=== PATIENT | male | born 1995 | race Caucasian/White ===

== ENCOUNTER → 2017-07-06 | Outpatient (CLI) | payer OTHER ==
--- OUTSIDE RECORDS SUMMARY | 2017-07-06 15:19 | External Medical Summary Rpt | CCD ---
Author Author , JP TRAMMELL Address Unknown Phone [email or web address] Care Team Providers Care Medical Typist Name Role Phone TYRELL PATRICIA, Unavailable Unavailable TYRELL PATRICIA [facility] Un[facility], Un[id number] Unavailable Unavailable [id number] DR VISHNU SOLIS JR Unavailable Unavailable GRP, DR VISHNU SOLIS JR [facility] Unavailable Un[facility] Unavailable [facility]available [facility] Unavailable Unavailable [facility], [facility] TAHIRA BARTH, Unavailable Unavailable TAHIRA BARTH DAVID M, Unavailable Unavailable JAGJIT MCCRAY [facility] Unavailable Unavailable [facility] KIA MCDUFFIE, Unavailable Unavailable KIA MCDUFFIE KRISTY K, Unavailable Unavailable MICHAEL CERDA GIAN, ANN N, Unavailable Unavailable GIAN, VAMSHI N [id number], Unavailable Unavailable [id number] Unavailable Unavailable [id number] # [id number], [facility] [id number] # 0391 JR VALERIANO SOLIS, Unavailable Unavailable JR VALERIANO SOLIS [facility] Unavailable Unavailable #493, [facility] Purpose Continuity of Care Document - 08-05-2007 through 2016 Problems Code Diagnosis DOS Provider Status 3671 MYOPIA 11-24-2013 JR VALERIANO SOLIS 3732 CHALAZION 09-09-2013 [facility] 4619 ACUTE 09-09-2013 [facility] SINUSITIS, [facility]EDIATRICS UNSPECIFIED PSC 7821 RASH AND 07-18-2013 [facility] OTHER [facility]EDI[facility]ICS NONSPECIFIC PSC SKIN ERUPTION 7862 COUGH 06-30-2013 [facility] 0090 INFECTIOUS 06-13-2013 [facility] COLITIS [facility] ENTERITIS PSC AND GASTROENTER ITIS 4658 ACUTE URIS 06-13-2013 [facility] OF OTHER PEDIATRICS MULTIPLE PSC SITES 462 ACUTE 08-20-2012 [facility] PHARYNGITIS [facility] 79458 UNSPECIFIED 07-24-2012 [facility] [place] [facility] ANKLE S PLC SPRAIN AND STRAIN 18743 PAIN IN 05-31-2012 [facility] FOOT V571 OTHER 05-31-2012 [facility] 95883 EFFUSION OF 04-29-2012 [facility] [place] ANKLE AND [facility]IOLOG[facility] FOOT JOINT 9597 INJURY 04-29-2012 [facility] OTHER&UNSPE COMM[facility]ITY CIFIED [facility] LEG ANKLE&FOOT 77690 PAIN IN 03-06-2012 [facility] JOINT, PEDIATRICS FOREARM PSC 9593 INJURY 03-06-2012 [facility] [place] OTHER&UNSPE RADIOLOGY CIFIED [facility] 4618 OTHER ACUTE 09-04-2011 [facility]US[facility] 0340 STREPTOCOCC 07-29-2011 [facility] AL SORE [facility] THROAT PSC 90835 PAIN IN 03-14-2011 [facility] [place] [facility], HAND [facility] S [facility] 01079 PAIN IN 01-04-2011 [facility], PEDIATRICS LOWER LEG PSC 4659 ACUTE URIS 12-20-2010 [facility] OF PEDIATRICS UNSPECIFIED PSC SITE 86309 REGULAR 11-01-2010 DR VISHNU SOLIS GRP 5583 GASTROENTER 05-25-2010 [facility] ITIS AND [facility] COLITIS [facility] ALLERGIC 5589 OTH&UNSPEC 05-16-2010 [facility] NONINFECTIO [facility]EDIATRICS US PSC GASTROENTER ITIS&COLITI S 41635 CONTUSION 04-13-2010 [facility] 29144 CLOSED 04-11-2010 [facility] FRACTURE OF [facility] METACARPAL BONE 77137 DIARRHEA 12-03-2009 [facility] 4779 ALLERGIC 11-22-2009 [facility] RHINITIS [facility] CAUSE PSC UNSPECIFIED 72692 ABDOMINAL 11-22-2009 [facility] PAIN, PEDIATRICS UNSPECIFIED PSC SITE 4739 UNSPECIFIED 05-18-2009 [facility] SINUS[facility]IS [facility] P[facility] V0481 NEED 05-18-2009 [facility] PROPHYLACTI [facility]IATRICS C PSC VACCINATION &INOCULATIO N FLU 20221 MIGRAINE 03-05-2009 [facility] UNSP W/O PEDIATRICS INTRACT W/O PSC STATUS MIGRAINOSUS 34143 UNSPECIFIED 02-01-2009 [facility] VIRAL [facility] WARTS P[facility] 1401 MALIGNANT 01-18-2009 [facility] NEOPLASM OF [facility] VERMILION BORDER 7296 RESIDUAL 01-18-2009 [place] FOREIGN ANESTHESIA BODY IN GROUP PSC SOFT TISSUE 9060 LATE EFFECT 01-18-2009 [facility] OF OPEN [facility] WOUND OF [facility] HEAD NECK AND TRUNK 7094 FOREIGN 01-15-2009 [facility] BODY [facility]EDI[facility]ICS GRANULOMA PSC SKIN&SUBCUT ANEOUS TISSUE 8748 OPEN WOUND 01-13-2009 [place] OTH&UNSPEC [facility] PARTS [facility] HOSPITAL W/O MENTION COMP 69899 VOMITING 12-29-2008 [facility] ALONE [facility] 6918 OTHER 10-19-2008 [facility] ATOPIC [facility] DERMATITIS PSC AND RELATED CONDITIONS 08064 SPRAIN AND 09-01-2008 [facility] STRAIN OF [facility] UNSPECIFIED HOSPITAL SITE OF FOOT 463 ACUTE 05-09-2008 [facility] TONSILLITIS PEDIATRICS PSC 9233 CONTUSION 04-09-2008 [facility] OF [facility] 927 CRUSHING 04-09-2008 [facility] INJURY OF [facility] UPPER LIMB [facility] E[address]494 PLACE OF 04-09-2008 [facility] RECREATION AND SPORT V0389 NEED PROPH 02-29-2008 [facility] VACC [facility]IAT[facility]ICS AGAINST OTH PSC SPEC VACC V053 NEED PROPH 02-29-2008 [facility] VACC&INOCUL PEDIATRICS AT AGAINST PSC VIRAL HEP V700 ROUTINE 02-29-2008 [facility] GENERAL [facility] MEDICAL [facility] EXAM@HEALTH CARE FACL 3829 UNSPECIFIED 08-05-2007 [facility] OTITIS [facility]RICS MEDIA PSC Medications Na ND Rx Da Fi Fi Am Da Di Ph RX Ph St me C No te ll ll ou ys ag ar # ys at rm s nt no ma ic us Or Da si cy ia de te s n re d BE 67 09 09 30 10 RI 45 ME Ac NZ 87 -2 -2 .0 TE 70 NK ti ON 70 2- 2- 00 58 E ve AT 10 20 20 AI KR AT 60 11 11 D IS E 1 PH TY 20 AR K 0 MA MG CY CA 03 PS 91 UL 4 E # 03 91 LO 00 08 08 1 30 30 RI 45 ME Ac RA 78 -1 -1 .0 TE 28 NK ti TA 15 6- 6- 00 65 E ve DI 07 20 20 AI KR NE 70 11 11 D IS 1 PH TY 10 AR K MA MG CY TA 03 BL 91 ET 4 # 03 91 BR 60 05 05 15 5 RI 44 BA Ac OM 43 -2 -2 0. TE 33 DG ti FE 20 4- 4- 00 78 ER ve D 83 20 20 0 AI DM 71 11 11 D BR 6 PH IA CO AR N UG MA C H CY SY RU 03 P 91 4 # 03 91 AD 54 02 02 30 30 RI 43 SA Ac DE 09 -0 -1 .0 TE 18 ND ti RA 20 2- 7- 00 87 ER ve LL 38 20 20 AI S 70 11 11 D CA XR 1 PH RL AR A 20 MA L CY MG 03 CA 91 PS 4 UL # E 03 91 NA 00 01 01 20 10 RI 42 FA Ac SD 09 -1 -1 .0 TE 80 RM ti OX 30 7- 8- 00 95 ER ve EN 14 20 20 AI 90 11 11 D DO 50 1 PH NN 0 AR A MG MA CY TA BL 03 ET 91 4 # 03 91 AD 54 12 12 30 30 RI 42 SA Ac DE 09 -2 -2 .0 TE 54 ND ti RA 20 2- 2- 00 37 ER ve LL 38 20 20 AI S 70 10 10 D CA XR 1 PH RL AR A 20 MA L CY MG 03 CA 91 PS 4 UL # E 03 91 AD 54 11 11 30 30 RI 42 العراقي Ac DE 09 -1 -1 .0 TE 11 AL ti RA 20 5- 5- 00 35 D ve LL 38 20 20 AI SA 70 10 10 D EE XR 1 PH D AR 20 MA CY MG 03 CA 91 PS 4 UL # E 03 91 CY 00 10 10 2 45 30 RI 41 ME Ac SD 09 -1 -1 .0 TE 78 NK ti OH 32 8- 8- 00 58 E ve EP 92 20 20 AI KR TA 90 10 10 D IS DI 1 PH TY NE AR K 4 MA CY MG 03 TA 91 BL 4 ET # 03 91 AD 54 09 09 30 30 RI 41 العراقي Ac DE 09 -1 -2 .0 TE 49 AL ti RA 20 3- 1- 00 12 D ve LL 38 20 20 AI SA 50 10 10 D EE XR 1 PH D AR 15 MA CY MG 03 CA 91 PS 4 UL # E 03 91 AD 54 06 06 30 30 RI 40 العراقي Ac DE 09 -2 -3 .0 TE 62 AL ti RA 20 6- 0- 00 01 D ve LL 38 20 20 AI SA 50 10 10 D EE XR 1 PH D AR 15 MA CY MG 03 CA 91 PS 4 UL # E 03 91 AD 54 05 05 30 30 RI 40 العراقي Ac DE 09 -2 -2 .0 TE 27 AL ti RA 20 5- 7- 00 28 D ve LL 38 20 20 AI SA 50 10 10 D EE XR 1 PH D AR 15 MA CY MG 03 CA 91 PS 4 UL # E 03 91 AD 54 04 04 30 30 RI 39 العراقي Ac DE 09 -2 -2 .0 TE 89 AL ti RA 20 0- 1- 00 08 D ve LL 38 20 20 AI SA 50 10 10 D EE XR 1 PH D AR 15 MA CY MG 03 CA 91 PS 4 UL # E 03 91 CY 00 03 03 3 45 30 RI 35 العراقي Ac SD 09 -2 -0 .0 TE 77 MB ti OH 32 3- 8- 00 39 RI ve EP 92 20 20 AI CK TA 90 09 10 D DI 1 PH HO NE AR RA 4 MA CE CY P MG 03 TA 91 BL 4 ET # 03 91 AD 54 03 03 30 30 RI 39 العراقي Ac DE 09 -0 -0 .0 TE 41 AL ti RA 20 8- 8- 00 36 D ve LL 38 20 20 AI SA 50 10 10 D EE XR 1 PH D AR 15 MA CY MG 03 CA 91 PS 4 UL # E 03 91 AD 54 01 01 00 30 30 RI 38 العراقي Ac DE 09 -0 -2 .0 TE 78 AL ti RA 20 6- 8- 00 88 D ve LL 38 20 20 AI SA 30 10 10 D EE XR 1 PH D AR 10 M #3 MG 91 4 CA PS UL E AD 54 12 12 00 30 30 RI 38 العراقي Ac DE 09 -0 -3 .0 TE 55 AL ti RA 20 9- 1- 00 06 D ve LL 38 20 20 AI SA 30 09 09 D EE XR 1 PH D AR 10 M #3 MG 91 4 CA PS UL E SD 64 11 11 00 30 30 RI 38 HO Ac EV 76 -0 -1 .0 TE 07 DD ti AC 40 4- 9- 00 89 Y ve ID 04 20 20 AI DA [address] 3 PH D AR M 30 M #3 MG 91 4 CA PS UL E AD 54 10 11 00 30 30 RI 38 العراقي Ac DE 09 -2 -1 .0 TE 07 AL ti RA 20 8- 9- 00 88 D ve LL 38 20 20 AI SA 30 09 09 D EE XR 1 PH D AR 10 M #3 MG 91 4 CA PS UL E VE 00 10 11 00 18 25 RI 37 ME Ac NT 17 -2 -0 .0 TE 91 NK ti OL 30 0- 5- 00 62 E ve IN 68 20 20 AI KR 22 09 09 D IS HF 0 PH TY A AR K 90 M #3 MC 91 G 4 IN العراقي LE R 50 03 11 02 45 30 RI 35 العراقي Ac 11 -2 -0 .0 TE 77 MB ti 10 3- 5- 00 39 RI ve 31 20 20 AI CK 40 09 09 D 1 PH HO AR RA M CE #3 P 91 4 59 10 11 00 20 10 CV 53 RI Ac 76 -2 -0 .0 S 09 EB ti 21 0- 5- 00 PH 17 EL ve 05 20 20 AR 00 09 09 MA JE 5 CY NN IF #3 ER 01 S 6 AD 54 10 10 00 30 30 RI 37 العراقي Ac DE 09 -0 -2 .0 TE 76 AL ti RA 20 6- 2- 00 77 D ve LL 38 20 20 AI SA 30 09 09 D EE XR 1 PH D AR 10 M #3 MG 91 4 CA PS UL E RA 00 09 10 00 60 30 RI 37 BA Ac NI 17 -2 -0 .0 TE 64 DG ti TI 24 5- 8- 00 84 ER ve DI 35 20 20 AI NE 74 09 09 D BR 9 PH IA 15 AR N 0 M C MG #3 91 TA 4 BL ET AD 54 08 09 00 30 30 RI 37 العراقي Ac DE 09 -2 -1 .0 TE 40 AL ti RA 20 7- 0- 00 14 D ve LL 38 20 20 AI SA 30 09 09 D EE XR 1 PH D AR 10 M #3 MG 91 4 CA PS UL E 51 08 09 00 40 20 RI 37 HO Ac 99 -2 -1 .0 TE 29 DD ti 10 6- 0- 00 46 Y ve 13 20 20 AI DA 80 09 09 D 1 PH D AR M M #3 91 4 00 08 09 00 20 6 RI 37 HO Ac 25 -2 -1 .0 TE 29 DD ti 83 6- 0- 00 41 Y ve 67 20 20 AI DA 80 09 09 D 1 PH D AR M M #3 91 4 SD 00 08 08 00 6. 1 RI 37 BA Ac OM 78 -0 -2 00 TE 14 DG ti ET 11 7- 7- 0 14 ER ve العراقي 83 20 20 AI ZI 00 09 09 D BR NE 1 PH IA AR N 25 M C #3 MG 91 4 TA BL ET AD 54 07 08 00 30 30 RI 37 العراقي Ac DE 09 -2 -1 .0 TE 09 AL ti RA 20 2- 3- 00 47 D ve LL 38 20 20 AI SA 30 09 09 D EE XR 1 PH D AR 10 M #3 MG 91 4 CA PS UL E AD 54 07 07 00 30 30 RI 36 العراقي Ac DE 09 -0 -3 .0 TE 80 AL ti RA 20 6- 0- 00 93 D ve LL 38 20 20 AI SA 30 09 09 D EE XR 1 PH D AR 10 M #3 MG 91 4 CA PS UL E AD 54 07 07 00 30 30 RI 36 العراقي Ac DE 09 -0 -1 .0 TE 80 AL ti RA 20 6- 6- 00 93 D ve LL 38 20 20 AI SA 30 09 09 D EE XR 1 PH D AR 10 M #3 MG 91 4 CA PS UL E [place] 00 06 07 00 20 10 RI 36 QU Ac LF 60 -1 -0 .0 TE 66 AC ti AM 35 9- 2- 00 75 KE ve ET 78 20 20 AI NB HO 12 09 09 D US XA 8 PH H ZO AR AN LE M N -T #3 N MP 91 4 DS TA BL ET 53 06 07 00 12 4 RI 36 WI Ac 74 -2 -0 .0 TE 68 GN ti 60 2- 2- 00 95 AK ve 13 20 20 AI UM 10 09 09 D AR 5 PH AR VE M RAMAN #3 PI 91 LL 4 AI 00 06 07 00 14 4 RI 36 WI Ac 14 -2 -0 .0 TE 69 GN ti 39 2- 2- 00 45 AK ve 89 20 20 AI UM 80 09 09 D AR 1 PH AR VE M RAMAN #3 PI 91 LL 4 AI 50 03 06 01 45 30 RI 35 العراقي Ac 11 -2 -1 .0 TE 77 MB ti 10 3- 8- 00 39 RI ve 31 20 20 AI CK 40 09 09 D 1 PH HO AR RA M CE #3 P 91 4 SD 68 06 06 00 10 3 WA 69 BA Ac OM 38 -0 -1 .0 L- 91 DG ti ET 20 2- 8- 00 MA 77 ER ve العراقي 04 20 20 RT 2 ZI 10 09 09 BR NE 1 PH IA AR N 25 MA C CY MG #4 TA 93 BL ET AD 54 06 06 00 30 30 RI 36 العراقي Ac DE 09 -0 -1 .0 TE 50 AL ti RA 20 1- 8- 00 44 D ve LL 38 20 20 AI SA 30 09 09 D EE XR 1 PH D AR 10 M #3 MG 91 4 CA PS UL E AD 54 04 05 00 30 30 WA 22 العراقي Ac DE 09 -2 -0 .0 L- 16 AL ti RA 20 2- 7- 00 MA 36 D ve LL 38 20 20 RT 2 SA 30 09 09 EE XR 1 PH D AR 10 MA CY MG #4 CA 93 PS UL E HY 51 03 04 00 45 10 RI [address] 67 -2 -0 .0 TE 77 MB ti OC 21 4- 00 RI ve OR 29 20 20 AI CK TI 00 09 09 D SO 6 PH HO NE AR RA M CE VA #3 P L 91 0. 4 2% CR EA M 50 03 04 00 45 30 RI 35 العراقي Ac 11 -2 -0 .0 TE 77 MB ti 10 3 39 RI ve 31 20 20 AI CK 40 09 09 D 1 PH HO AR RA M CE #3 P 91 4 AD 54 03 04 00 30 30 RI 35 العراقي Ac DE 09 -0 -0 .0 TE 81 AL ti RA 20 2 9 78 D ve LL 38 20 20 AI SA 30 09 09 D EE XR 1 PH D AR 10 M #3 MG 91 4 CA PS UL E AD 54 02 03 00 30 30 RI 35 العراقي Ac DE 09 -2 -1 .0 TE 46 AL ti RA 20 3- 2- 00 44 D ve LL 38 20 20 AI SA 30 09 09 D EE XR 1 PH D AR 10 M #3 MG 91 4 CA PS UL E AD 54 01 02 00 30 30 RI 35 العراقي Ac DE 09 -2 -1 .0 TE 20 AL ti RA 20 7- 2- 27 D ve LL 38 20 20 AI SA 30 09 09 D EE XR 1 PH D AR 10 M #3 MG 91 4 CA PS UL E AD 54 12 01 00 30 30 RI 34 العراقي Ac DE 09 -2 -0 .0 TE 83 AL ti RA 20 3- 1- 00 71 D ve LL 38 20 20 AI SA 30 08 09 D EE XR 1 PH D AR 10 M #3 MG 91 4 CA PS UL E AD 54 11 12 00 30 30 RI 34 العراقي Ac DE 09 -2 -0 .0 TE 56 AL ti RA 20 6- 4- 00 66 D ve LL 38 20 20 AI SA 30 08 08 D EE XR 1 PH D AR 10 M #3 MG 91 4 CA PS UL E AD 54 10 11 00 30 30 RI 34 العراقي Ac DE 09 -2 -0 .0 TE 20 AL ti RA 20 0- 7- 00 30 D ve LL 38 20 20 AI SA 30 08 08 D EE XR 1 PH D AR 10 M #3 MG 91 4 CA PS UL E AD 54 09 10 00 30 30 RI 33 العراقي Ac DE 09 -1 -0 .0 TE 90 AL ti RA 20 8- 9- 00 97 D ve LL 38 20 20 AI SA 30 08 08 D EE XR 1 PH D AR 10 M #3 MG 91 4 CA PS UL E PA 00 08 08 00 2. 20 RI 33 العراقي Ac TA 06 -1 -2 50 TE 54 RV ti DA 50 2- 8- 0 56 EY ve Y 27 20 20 AI 0. 22 08 08 D AN 2% [address] AR EW EY M M E #3 DR 91 OP 4 S AD 54 08 08 00 30 30 RI 33 العراقي Ac DE 09 -0 -2 .0 TE 54 AL ti RA 20 6- 8- 00 57 D ve LL 38 20 20 AI SA 30 08 08 D EE XR 1 PH D AR 10 M #3 MG 91 4 CA PS UL E AD 54 07 08 00 30 30 RI 33 العراقي Ac DE 09 -1 -0 .0 TE 24 AL ti RA 20 0- 1- 00 51 D ve LL 38 20 20 AI SA 30 08 08 D EE XR 1 PH D AR 10 M #3 MG 91 4 CA PS UL E AD 54 06 06 00 30 30 RI 32 العراقي Ac DE 09 -0 -1 .0 TE 89 AL ti RA 20 2- 2- 00 19 D ve LL 38 20 20 AI SA 30 08 08 D EE XR 1 PH D AR 10 M #3 MG 91 4 CA PS UL E AD 54 04 05 00 30 30 RI 32 No Ac DE 09 -3 -0 .0 TE 60 t ti RA 20 0- 8- 00 42 Av ve LL 38 20 20 AI ai 30 08 08 D la XR 1 PH bl AR e 10 M #3 MG 91 4 CA PS UL E AD 54 04 04 00 30 30 RI 32 No Ac DE 09 -0 -2 .0 TE 31 t ti RA 20 2- 4- 00 66 Av ve LL 38 20 20 AI ai 30 08 08 D la XR 1 PH bl AR e 10 M #3 MG 91 4 CA PS UL E AD 54 04 04 00 30 30 RI 32 No Ac DE 09 -0 -1 .0 TE 31 t ti RA 20 2- 0- 00 66 Av ve LL 38 20 20 AI ai 30 08 08 D la XR 1 PH bl AR e 10 M #3 MG 91 4 CA PS UL E AD 54 02 04 00 30 30 RI 31 No Ac DE 09 -2 -0 .0 TE 93 t ti RA 20 6- 7- 00 86 Av ve LL 38 20 20 AI ai 30 08 08 D la XR 1 PH bl AR e 10 M #3 MG 91 4 CA PS UL E 50 10 03 01 30 30 RI 30 No Ac 11 -1 -2 .0 TE 63 t ti 10 1- 5- 00 08 Av ve 31 20 20 AI ai 40 07 08 D la 1 PH bl AR e M #3 91 4 AD 54 01 03 00 30 30 RI 31 No Ac DE 09 -2 -2 .0 TE 55 t ti RA 20 3- 5- 00 89 Av ve LL 38 20 20 AI ai 30 08 08 D la XR 1 PH bl AR e 10 M #3 MG 91 4 CA PS UL E AM 00 01 03 00 60 10 RI 31 No Ac OX 78 -0 -2 .0 TE 36 t ti IC 12 7- 4- 00 92 Av ve IL 02 20 20 AI ai LI 00 08 08 D la N 5 PH bl 25 AR e 0 M MG #3 91 CA 4 PS UL E AC 00 01 03 00 10 1 RI 31 No Ac ET 09 -0 -2 .0 TE 36 t ti AM 30 7- 4- 00 91 Av ve IN 15 20 20 AI ai OP 01 08 08 D la HE 0 PH bl N- AR e CO M D #3 #3 91 4 TA BL ET Procedures Procedure DOS Code Location Performer Comment MYOTOMY 8302 [facility] 9 N N [facility] RADEX [address] MINIMUM 3 VIEWS Encounters Encounter Start End Date Code Location Performer Type [facility] [address] [place] [address] 2 N [facility] 2 N [facility] - [address] [facility] 9 9 N [facility] 9 9 [facility] OFFICE [address] [facility] 9 9 N [place] P T VISIT PEDIATRIC 15 S PSC MINUTES EMERGENCY 40183 [facility] 9 9 [facility] T VISIT [facility]OW/[facility] [address] [facility] - 8 8 N [facility]
--- OUTSIDE RECORDS SUMMARY | 2017-07-06 15:19 | External Medical Summary Rpt | CCD ---
Author Author , JP TRAMMELL Address Unknown Phone [email or web address] Care Team Providers Care Dog Hair Clipper Name Role Phone TYRELL PATRICIA, Unavailable Unavailable TYRELL PATRICIA [facility], Un[id number], Unavailable Unavailable [id number] DR VISHNU SOLIS JR Unavailable Unavailable GRP, DR VISHNU SOLIS JR [facility] Unavailable Un[facility] Unavailable Unavailable [facility] Unavailable Unavailable [facility], [facility] TAHIRA BARTH, Unavailable Unavailable TAHIRA BARTH DAVID M, Unavailable Unavailable JAGJIT MCCRAY [facility] Unavailable Unavailable [facility], [facility] KAI MCDUFFIE, Unavailable Unavailable KIA MCDUFFIE KRISTY K, Unavailable Unavailable MICHAEL CERDA GIAN, ANN N, Unavailable Unavailable GIAN, VAMSHI N [id number], Unavailable Unavailable [id number] Unavailable Unavailable [id number] # [phone], [facility] [id number] # [phone] JR VALERIANO SOLIS, Unavailable Unavailable JR VALERIANO SOLIS [facility] Unavailable Unavailable #493, [facility] #493 Purpose Continuity of Care Document - 08-05-2007 through 2016 Problems Code Diagnosis DOS Provider Status 3671 MYOPIA 11-24-2013 JR VALERIANO SOLIS 3732 CHALAZION 09-09-2013 [facility] 4619 ACUTE 09-09-2013 [facility] SINUSITIS, PEDIATRICS UNSPECIFIED PSC 7821 RASH AND 07-18-2013 [facility] OTHER PEDI[facility]ICS NONSPECIFIC PSC SKIN ERUPTION 7862 COUGH 06-30-2013 [facility] 0090 INFECTIOUS 06-13-2013 [facility] COLITIS [facility] ENTERITIS PSC AND GASTROENTER ITIS 4658 ACUTE URIS 06-13-2013 [facility] OF OTHER PEDIATRICS MULTIPLE PSC SITES 462 ACUTE 08-20-2012 [facility] PHARYNGITIS [facility] P[facility] 86455 UNSPECIFIED 07-24-2012 [facility] [place] [facility] ANKLE S PLC SPRAIN AND STRAIN 79306 PAIN IN 05-31-2012 [facility] JOINT, [facility] FOOT V571 OTHER 05-31-2012 [facility] 61364 EFFUSION OF 04-29-2012 [facility] [place] [facility] FOOT JOINT 9597 INJURY 04-29-2012 [facility] OTHER&UNSPE COMMUNITY CIFIED [facility] LEG ANKLE&FOOT 26595 PAIN IN 03-06-2012 [facility], PEDIATRICS FOREARM PSC 9593 INJURY 03-06-2012 [facility] [place] OTHER&UNSPE RADIOLOGY CIFIED [facility] 4618 OTHER ACUTE 09-04-2011 [facility] SINUSITIS [facility] 0340 STREPTOCOCC 07-29-2011 [facility] AL SORE [facility] THROAT PSC 22509 PAIN IN 03-14-2011 [facility] [place] [facility], HAND [facility] 00100 PAIN IN 01-04-2011 [facility] JO[facility], PEDIATRICS LOWER LEG PSC 4659 ACUTE URIS 12-20-2010 [facility] OF [facility]EDIATRICS UNSPECIFIED PSC SITE 10495 REGULAR 11-01-2010 DR VISHNU SOLIS GRP 5583 GASTROENTER 05-25-2010 [facility] ITIS AND [facility]ED[facility] COLITIS PSC ALLERGIC 5589 OTH&UNSPEC 05-16-2010 [facility] NONINFECTIO [facility]EDIATRICS US PSC GASTROENTER ITIS&COLITI S 66298 CONTUSION 04-13-2010 [facility] 18383 CLOSED 04-11-2010 [facility] FRACTURE OF [facility] METACARPAL BONE 24551 DIARRHEA 12-03-2009 [facility] 4779 ALLERGIC 11-22-2009 [facility] RHINITIS [facility] CAUSE PSC UNSPECIFIED 69706 ABDOMINAL 11-22-2009 [facility] PAIN, PEDIATRICS UNSPECIFIED PSC SITE 4739 UNSPECIFIED 05-18-2009 [facility] SINUS[facility] P[facility] V0481 NEED 05-18-2009 [facility] PROPHYLACTI [facility]EDIATRICS C PSC VACCINATION &INOCULATIO N FLU 41723 MIGRAINE 03-05-2009 [facility] UNSP W/O PEDIATRICS INTRACT W/O PSC STATUS MIGRAINOSUS 22439 UNSPECIFIED 02-01-2009 [facility] VIRAL [facility] WARTS PSC 1401 MALIGNANT 01-18-2009 [facility] NEOPLASM OF [facility] VERMILION BORDER 7296 RESIDUAL 01-18-2009 [place] FOREIGN ANESTHESIA BODY IN GROUP PSC SOFT TISSUE 9060 LATE EFFECT 01-18-2009 [facility] OF OPEN [facility] WOUND OF [facility] HEAD NECK AND TRUNK 7094 FOREIGN 01-15-2009 [facility] BODY [facility]EDI[facility]ICS GRANULOMA PSC SKIN&SUBCUT ANEOUS TISSUE 8748 OPEN WOUND 01-13-2009 [place] OTH&UNSPEC COMMUNITY PARTS [facility] HOSPITAL W/O MENTION COMP 27013 VOMITING 12-29-2008 [facility] ALONE [facility] 6918 OTHER 10-19-2008 [facility] ATOPIC [facility] DERMATITIS PSC AND RELATED CONDITIONS 38371 SPRAIN AND 09-01-2008 [facility] STRAIN OF [facility] UNSPECIFIED HOSPITAL SITE OF FOOT 463 ACUTE 05-09-2008 [facility] TONSILLITIS [facility]EDIATRICS PSC 9233 CONTUSION 04-09-2008 [facility] OF [facility] 927 CRUSHING 04-09-2008 [facility] INJURY OF [facility] UPPER LIMB [facility] E8494 PLACE OF 04-09-2008 [facility] RECREATION AND SPORT V0389 NEED PROPH 02-29-2008 [facility] VACC [facility] AGAINST OTH P[facility] SPEC VACC V053 NEED PROPH 02-29-2008 [facility] VACC&INOCUL PEDIATRICS AT AGAINST PSC VIRAL HEP V700 ROUTINE 02-29-2008 [facility] GENERAL [facility] MEDICAL P[facility] [email or web address] [email or web address] FACL 3829 UNSPECIFIED 08-05-2007 [facility] OTITIS [facility]RICS MEDIA PSC Medications Na ND [...] 01 20 10 RI 42 FA Ac ND 09 -1 -1 .0 TE 80 RM [...] DE 09 -1 -1 .0 TE 11 CA ti RA 20 5- 5- 00 35 D ve LL 38 20 20 AI SA 70 10 10 D EE XR 1 PH D AR 20 MA CY MG 03 CA 91 PS 4 UL # E 03 91 CY 00 10 10 2 45 30 RI 41 ME Ac ND 09 -1 -1 .0 TE 78 NK [...] DE 09 -1 -2 .0 TE 49 CA ti RA 20 3- 1- 00 12 D ve LL 38 20 20 AI SA 50 10 10 D EE XR 1 PH D AR 15 MA CY MG 03 CA 91 PS 4 UL # E 03 91 AD 54 06 06 30 30 RI 40 العراقي Ac DE 09 -2 -3 .0 TE 62 CA ti RA 20 6- 0- 00 01 D ve LL 38 20 20 AI SA 50 10 10 D EE XR 1 PH D AR 15 MA CY MG 03 CA 91 PS 4 UL # E 03 91 AD 54 05 05 30 30 RI 40 العراقي Ac DE 09 -2 -2 .0 TE 27 CA ti RA 20 5- 7- 00 28 D ve LL 38 20 20 AI SA 50 10 10 D EE XR 1 PH D AR 15 MA CY MG 03 CA 91 PS 4 UL # E 03 91 AD 54 04 04 30 30 RI 39 العراقي Ac DE 09 -2 -2 .0 TE 89 CA ti RA 20 0- 1- 00 08 D ve LL 38 20 20 AI SA 50 10 10 D EE XR 1 PH D AR 15 MA CY MG 03 CA 91 PS 4 UL # E 03 91 CY 00 03 03 3 45 30 RI 35 العراقي Ac ND 09 -2 -0 .0 TE 77 MB [...] DE 09 -0 -0 .0 TE 41 CA ti RA 20 8- 8- 00 36 D ve LL 38 20 20 AI SA 50 10 10 D EE XR 1 PH D AR 15 MA CY MG 03 CA 91 PS 4 UL # E 03 91 AD 54 01 01 00 30 30 RI 38 العراقي Ac DE 09 -0 -2 .0 TE 78 CA ti RA 20 6- 8- 00 88 D ve LL 38 20 20 AI SA 30 10 10 D EE XR 1 PH D AR 10 M #3 MG 91 4 CA PS UL E AD 54 12 12 00 30 30 RI 38 العراقي Ac DE 09 -0 -3 .0 TE 55 CA ti RA 20 9- 1- 00 06 D ve LL 38 20 20 AI SA 30 09 09 D EE XR 1 PH D AR 10 M #3 MG 91 4 CA PS UL E ND 64 11 11 00 30 30 RI [...] DE 09 -2 -1 .0 TE 07 CA ti RA 20 8- 9- 00 88 [...] DE 09 -0 -2 .0 TE 76 CA ti RA 20 6- 2- 00 77 [...] DE 09 -2 -1 .0 TE 40 CA ti RA 20 7- 0- 00 14 [...] D AR M M #3 91 4 ND 00 08 08 00 6. 1 RI [...] DE 09 -2 -1 .0 TE 09 CA ti RA 20 2- 3- 00 47 D ve LL 38 20 20 AI SA 30 09 09 D EE XR 1 PH D AR 10 M #3 MG 91 4 CA PS UL E AD 54 07 07 00 30 30 RI 36 العراقي Ac DE 09 -0 -3 .0 TE 80 CA ti RA 20 6- 0- 00 93 D ve LL 38 20 20 AI SA 30 09 09 D EE XR 1 PH D AR 10 M #3 MG 91 4 CA PS UL E AD 54 07 07 00 30 30 RI 36 العراقي Ac DE 09 -0 -1 .0 TE 80 CA ti RA 20 6- 6- 00 93 [...] RA M CE #3 P 91 4 ND 68 06 06 00 10 3 WA [...] DE 09 -0 -1 .0 TE 50 CA ti RA 20 1- 8- 00 44 D ve LL 38 20 20 AI SA 30 09 09 D EE XR 1 PH D AR 10 M #3 MG 91 4 CA PS UL E AD 54 04 05 00 30 30 WA 22 العراقي Ac DE 09 -2 -0 .0 L- 16 CA ti RA 20 2- 7- 00 MA [...] DE 09 -0 -0 .0 TE 81 CA ti RA 20 2 9 78 D ve LL 38 20 20 AI SA 30 09 09 D EE XR 1 PH D AR 10 M #3 MG 91 4 CA PS UL E AD 54 02 03 00 30 30 RI 35 العراقي Ac DE 09 -2 -1 .0 TE 46 CA ti RA 20 3- 2- 00 44 D ve LL 38 20 20 AI SA 30 09 09 D EE XR 1 PH D AR 10 M #3 MG 91 4 CA PS UL E AD 54 01 02 00 30 30 RI 35 العراقي Ac DE 09 -2 -1 .0 TE 20 CA ti RA 20 7- 2- 27 D ve LL 38 20 20 AI SA 30 09 09 D EE XR 1 PH D AR 10 M #3 MG 91 4 CA PS UL E AD 54 12 01 00 30 30 RI 34 العراقي Ac DE 09 -2 -0 .0 TE 83 CA ti RA 20 3- 1- 00 71 D ve LL 38 20 20 AI SA 30 08 09 D EE XR 1 PH D AR 10 M #3 MG 91 4 CA PS UL E AD 54 11 12 00 30 30 RI 34 العراقي Ac DE 09 -2 -0 .0 TE 56 CA ti RA 20 6- 4- 00 66 D ve LL 38 20 20 AI SA 30 08 08 D EE XR 1 PH D AR 10 M #3 MG 91 4 CA PS UL E AD 54 10 11 00 30 30 RI 34 العراقي Ac DE 09 -2 -0 .0 TE 20 CA ti RA 20 0- 7- 00 30 D ve LL 38 20 20 AI SA 30 08 08 D EE XR 1 PH D AR 10 M #3 MG 91 4 CA PS UL E AD 54 09 10 00 30 30 RI 33 العراقي Ac DE 09 -1 -0 .0 TE 90 CA ti RA 20 8- 9- 00 97 [...] DE 09 -0 -2 .0 TE 54 CA ti RA 20 6- 8- 00 57 D ve LL 38 20 20 AI SA 30 08 08 D EE XR 1 PH D AR 10 M #3 MG 91 4 CA PS UL E AD 54 07 08 00 30 30 RI 33 العراقي Ac DE 09 -1 -0 .0 TE 24 CA ti RA 20 0- 1- 00 51 D ve LL 38 20 20 AI SA 30 08 08 D EE XR 1 PH D AR 10 M #3 MG 91 4 CA PS UL E AD 54 06 06 00 30 30 RI 32 العراقي Ac DE 09 -0 -1 .0 TE 89 CA ti RA 20 2- 2- 00 19 [...] DOS Code Location Performer Comment MYOTOMY 8302 [facility] [address] [facility] RADEX [id number] MINIMUM 3 VIEWS Encounters Encounter Start End Date Code Location Performer Type [facility] [address] [place] [address] 2 N [facility] 2 2 N [facility] - 0 0 [facility] - 9 9 N [facility] 9 9 [facility] OFFICE [address] [facility] 9 9 N [place] [facility] T VISIT PEDIATRIC 15 S PSC MINUTES EMERGENCY [address] [facility] 9 9 [facility] T VISIT LOW/MODER [facility] 9 9 [facility] - 8 8 N [facility]
--- OUTSIDE RECORDS SUMMARY | 2017-07-06 15:20 | External Medical Summary Rpt | CCD ---
Demographics Home Phone Preferred Language Jamaican Marital Status Unknown Adventist Affiliation Unknown Race Unknown Ethnic Group Unknown Author Author , JP TRAMMELL Address Unknown Phone [email or web address] Immunization Name Date Rout CVX Reac Dose Comm Prov Is Faci e tion ent ider Refu lity Give sed n Infl 10-0 111 0.5 Hist D105 No D105 uenz 1-20 mL oric 01 01 a-LA 12 al IV Info Nasa rmat l ion - Sour ce Unsp ecif ied
--- OUTSIDE RECORDS SUMMARY | 2017-07-06 15:20 | External Medical Summary Rpt | CCD ---
Demographics Home Phone Preferred Language Comoran Marital Status Unknown Jain Affiliation Unknown Race Unknown Ethnic Group Unknown Author Author , JP TRAMMELL Address Unknown Phone [email or web address] Immunization Name Date Rout CVX Reac Dose Comm Prov Is Faci e tion ent ider Refu lity Give sed n Infl 10-0 111 0.5 Hist D105 No D105 uenz 1-20 mL oric 01 01 a-LA 12 al IV Info Nasa rmat l ion - Sour ce Unsp ecif ied
--- OUTSIDE RECORDS SUMMARY | 2017-07-06 15:20 | External Medical Summary Rpt | CCD ---
Demographics Preferred Language Japanese Marital Status Unknown Synagogue Affiliation Unknown Race Unknown Ethnic Group Unknown Author Author , JP TRAMMELL Address Unknown Phone [email or web address] Care Team Providers Care Dope Firer Name Role Phone [facility] Unavailable Unavailable [id number] # [phone], [facility] [id number] # [phone] Purpose Continuity of Care Document - 10-04-2009 through 2016 Medications Na ND Rx Da Fi Fi [...] 01 20 10 RI 42 FA Ac NE 09 -1 -1 .0 TE 80 RM [...] DE 09 -1 -1 .0 TE 11 W[place] ti RA 20 5- 5- 00 35 D ve LL 38 20 20 AI SA 70 10 10 D EE XR 1 PH D AR 20 MA CY MG 03 CA 91 PS 4 UL # E 03 91 CY 00 10 10 2 45 30 RI 41 ME Ac NE 09 -1 -1 .0 TE 78 NK [...] DE 09 -1 -2 .0 TE 49 W[place] ti RA 20 3- 1- 00 12 D ve LL 38 20 20 AI SA 50 10 10 D EE XR 1 PH D AR 15 MA CY MG 03 CA 91 PS 4 UL # E 03 91 AD 54 06 06 30 30 RI 40 العراقي Ac DE 09 -2 -3 .0 TE 62 WY ti RA 20 6- 0- 00 01 D ve LL 38 20 20 AI SA 50 10 10 D EE XR 1 PH D AR 15 MA CY MG 03 CA 91 PS 4 UL # E 03 91 AD 54 05 05 30 30 RI 40 العراقي Ac DE 09 -2 -2 .0 TE 27 WY ti RA 20 5- 7- 00 28 D ve LL 38 20 20 AI SA 50 10 10 D EE XR 1 PH D AR 15 MA CY MG 03 CA 91 PS 4 UL # E 03 91 AD 54 04 04 30 30 RI 39 العراقي Ac DE 09 -2 -2 .0 TE 89 WY ti RA 20 0- 1- 00 08 D ve LL 38 20 20 AI SA 50 10 10 D EE XR 1 PH D AR 15 MA CY MG 03 CA 91 PS 4 UL # E 03 91 AD 54 03 03 30 30 RI 39 العراقي Ac DE 09 -0 -0 .0 TE 41 WY ti RA 20 8- 8- 00 36 D ve LL 38 20 20 AI SA 50 10 10 D EE XR 1 PH D AR 15 MA CY MG 03 CA 91 PS 4 UL # E 03 91 CY 00 03 03 3 45 30 RI 35 العراقي Ac NE 09 -2 -0 .0 TE 77 MB ti OH 32 3- 8- 00 39 RI ve EP 92 20 20 AI CK TA 90 09 10 D DI 1 PH HO NE AR RA 4 MA CE CY P MG 03 TA 91 BL 4 ET # 03 91
--- OUTSIDE RECORDS SUMMARY | 2017-07-06 15:20 | External Medical Summary Rpt ---
Author Author JP Lawrence, [employer] Organization [employer] Address Unknown Phone Unavailable
--- OUTSIDE RECORDS SUMMARY | 2017-07-06 15:20 | External Medical Summary Rpt | CCD ---
Demographics Preferred Language Uzbek Marital Status Unknown Anabaptist Affiliation Unknown Race Unknown Ethnic Group Unknown Author Author , JP TRAMMELL Address Unknown Phone [email or web address] Care Team Providers Care Face Painter Name Role Phone [facility] Unavailable Unavailable [id number] # [phone], [facility] [id number] # [phone] Purpose Continuity of Care Document [...] 01 20 10 RI 42 FA Ac HI 09 -1 -1 .0 TE 80 RM [...] DE 09 -1 -1 .0 TE 11 NC ti RA 20 5- 5- 00 35 D ve LL 38 20 20 AI SA 70 10 10 D EE XR 1 PH D AR 20 MA CY MG 03 CA 91 PS 4 UL # E 03 91 CY 00 10 10 2 45 30 RI 41 ME Ac HI 09 -1 -1 .0 TE 78 NK [...] DE 09 -1 -2 .0 TE 49 NC ti RA 20 3- 1- 00 12 D ve LL 38 20 20 AI SA 50 10 10 D EE XR 1 PH D AR 15 MA CY MG 03 CA 91 PS 4 UL # E 03 91 AD 54 06 06 30 30 RI 40 العراقي Ac DE 09 -2 -3 .0 TE 62 NC ti RA 20 6- 0- 00 01 D ve LL 38 20 20 AI SA 50 10 10 D EE XR 1 PH D AR 15 MA CY MG 03 CA 91 PS 4 UL # E 03 91 AD 54 05 05 30 30 RI 40 العراقي Ac DE 09 -2 -2 .0 TE 27 NC ti RA 20 5- 7- 00 28 D ve LL 38 20 20 AI SA 50 10 10 D EE XR 1 PH D AR 15 MA CY MG 03 CA 91 PS 4 UL # E 03 91 AD 54 04 04 30 30 RI 39 العراقي Ac DE 09 -2 -2 .0 TE 89 NC ti RA 20 0- 1- 00 08 D ve LL 38 20 20 AI SA 50 10 10 D EE XR 1 PH D AR 15 MA CY MG 03 CA 91 PS 4 UL # E 03 91 AD 54 03 03 30 30 RI 39 العراقي Ac DE 09 -0 -0 .0 TE 41 NC ti RA 20 8- 8- 00 36 D ve LL 38 20 20 AI SA 50 10 10 D EE XR 1 PH D AR 15 MA CY MG 03 CA 91 PS 4 UL # E 03 91 CY 00 03 03 3 45 30 RI 35 العراقي Ac HI 09 -2 -0 .0 TE 77 MB ti OH 32 3- 8- 00 39 RI ve EP 92 20 20 AI CK TA 90 09 10 D DI 1 PH HO NE AR RA 4 MA CE CY P MG 03 TA 91 BL 4 ET # 03 91
== END ==
LOC: UTC 15:08 → UTC.OUT 15:14 → UTC 15:14 → EDSTATUS 15:18
DX: S91.332A Puncture wound without foreign body, left foot, initial encounter (principal); Z23 Encounter for immunization; W45.0XXA Nail entering through skin, initial encounter